=== PATIENT | male | born 1955 | race Caucasian/White ===

== ENCOUNTER 2017-02-02 07:39 | Emergency (ER) | payer OTHER ==
[~2017-02-02] VITALS: Ht 182.9 cm; Wt 106.6 kg
--- NOTE | 2017-02-02 07:53 | NUR ---
AAOX3, CAME TO ER C/O WORSENING CHRONIC BRONCHITIS THE LAST 5 DAYS. PATIENT ALSO C/O TOOTH CAVITY AND ASKING FOR A PRESCRIPTION OF ANTIBIOTIC. SKIN IS WARM AND DRY. RESP IS SLIGHTLY LABORED WITH NAD NOTE. DR MENDOSA AT FOR EVAL.
[2017-02-02] MEDS ORDERED: ALBUTEROL FS 2.5 MG/3 ML VIAL.NEB NEB ONE (08:00)
[2017-02-02] MEDS ORDERED: IPRATROPIUM NEB FS 0.5 MG/2.5 ML AMPUL.NEB NEB ONE (08:00)
[2017-02-02] MEDS ORDERED: methylPREDNISolone SOD SUCC 125 MG/2ML VIAL IV ONE (08:00)
[2017-02-02] MEDS ORDERED: methylPREDNISolone SOD SUCC 125 MG/2ML VIAL ONE (08:02)
[2017-02-02] MEDS ORDERED: IPRATROPIUM NEB FS 0.5 MG/2.5 ML AMPUL.NEB ONE (08:03)
[2017-02-02] MEDS ORDERED: ALBUTEROL FS 2.5 MG/3 ML VIAL.NEB ONE (08:03)
--- NOTE | 2017-02-02 08:11 | NUR ---
RFA #20 IV ACCESS. BLOOD SAMPLE COLLECTED SENT TO LAB
--- NOTE | 2017-02-02 08:11 | NUR ---
XRAY IN PROGRESS AT BS
[2017-02-02 08:42] LABS: BASOPHILS % (AUTO) 0.4 % (0.0-2.0); EOSINOPHILS # (AUTO) 0.2 /CMM (0.0-0.7); EOSINOPHILS % (AUTO) 2.5 % (0.0-6.0); HEMATOCRIT 41 % (39-51); LYMPHOCYTES # (AUTO) 2.1 /CMM (0.8-4.8); LYMPHOCYTES % (AUTO) 23.1 % (20.0-44.0); MEAN CORPUSCULAR HEMOGLOBIN 30 PG (26.0-33.0); MEAN CORPUSCULAR HGB CONC 34 g/dl (31.0-36.0); MEAN CORPUSCULAR VOLUME 88 fL (80-96); MONOCYTES # (AUTO) 0.9 /CMM (0.1-1.30); MONOCYTES % (AUTO) 10.4 % (2.0-12.0); NEUTROPHILS # (AUTO) 5.8 /CMM (1.8-8.9); NEUTROPHILS % (AUTO) 63.6 % (43.0-81.0); PLATELET COUNT (AUTO) 191 /CMM (150-450); RDW COEFFICIENT OF VARIATION 13.5 (11.5-15.0); RED BLOOD CELL COUNT(AUTO) 4.62 MIL/uL (4.5-6.0); WHITE BLOOD COUNT (AUTO) 9.1 K/uL (4.3-11.0)
[2017-02-02 09:00] LABS: TROPONIN I < 0.017 ng/mL (0.00-0.056)
[2017-02-02 09:02] LABS: CALCIUM, SERUM 8.7 mg/dL (8.5-10.1); CREATININE 1.1 mg/dL (0.6-1.3); POTASSIUM 4.1 mmol/L (3.5-5.1)
[2017-02-02 09:03] LABS: B-TYPE NATRIURETIC PEPTIDE 58 PG/ML (0-125)
[2017-02-02] MEDS ORDERED: LEVOFLOXACIN 750 MG /D5W 150ML 150 ML IV ONE (09:57)
[2017-02-02] MEDS ORDERED: IV SET PRIMARY PUMP SET 1 EA INFUS.SET MC ONE (09:57)
[2017-02-02] MEDS ORDERED: LEVOFLOXACIN 750 MG /D5W 150ML PIGGYBACK IV ONE (10:00)
--- NOTE | 2017-02-02 10:05 | NUR ---
PT TAKEN TO CT VIA WC
--- NOTE | 2017-02-02 11:16 | NUR ---
PAGED CHICKEN CLEANER FOR [facility] DR RODRIGUEZ
[2017-02-02] MEDS ORDERED: ARIP30TA PO (11:21)
--- NOTE | 2017-02-02 11:21 | NUR ---
CALLED NURSING INSTRUMENT ASSEMBLER FOR M/S BED
--- NOTE | 2017-02-02 11:47 | NUR ---
Patient does not wish to proceed with medical care recommended by Dr. MENDOSA. Patient given information related to possible complications, up to and including , which could occur as a result of leaving the hospital at this time. Patient verbalizes understanding of risks involved due to leaving against medical advice. Patient has signed AMA form.
--- NOTE | 2017-02-02 11:47 | NUR ---
IV removed. Catheter intact and site benign. Pressure and 4x4 applied to site. No bleeding noted.
--- NOTE | 2017-02-02 11:47 | NUR ---
Lee flanagan in [facility] - 02/02/17 at 1147 by PINO Patient discharged to home in stable condition. Written and verbal after care instructions given. Patient verbalizes understanding of instruction.
[2017-02-02 11:50] VITALS: BP 126/68
== END 2017-02-02 11:53 | disposition left against medical advice (07) ==
LOC: ER 07:41
DX: J44.1 Chronic obstructive pulmonary disease with (acute) exacerbation (principal); Z72.0 Tobacco use; J18.9 Pneumonia, unspecified organism; I10 Essential (primary) hypertension; Z94.1 Heart transplant status
CPT/HCPCS: 36415; 71010; 71250; 80048; 83880; 84484; 85025; 94640; 96365; 99285; A4606; J1956; J2930; Z7610

== ENCOUNTER 2017-07-27 07:34 | Inpatient (IN) | payer OTHER ==
[~2017-07-27] VITALS: Ht 177.8 cm; Wt 107.5 kg
[~2017-07-27 07:34] MED LIST: ARIP30TA PO
[2017-07-27] MEDS ORDERED: Magnesium 1GM/D5W 100ML PREMIX 200 ML IV ONE ×2 (07:58→08:04)
[2017-07-27] MEDS ORDERED: ONDANSETRON HCL/PF 4 MG/2 ML VIAL IVP ONE (08:00)
[2017-07-27] MEDS ORDERED: DILTIAZEM HCL 25 MG IV IV ONE ×2 (08:00→08:30)
[2017-07-27] MEDS ORDERED: IPRATROPIUM NEB FS 0.5 MG/2.5 ML AMPUL.NEB NEB ONE (08:00)
[2017-07-27] MEDS ORDERED: ALBUTEROL FS 2.5 MG/3 ML VIAL.NEB NEB ONE (08:00)
[2017-07-27] MEDS ORDERED: ASPIRIN EC 325 MG TABLET.DR PO ONE ×2 (08:00→08:04)
[2017-07-27] MEDS ORDERED: DILTIAZEM HCL 25 MG IV ONE ×2 (08:04→08:30)
[2017-07-27 08:14] LABS: BASOPHILS % (AUTO) 0.2 % (0.0-2.0); EOSINOPHILS % (AUTO) 0.1 % (0.0-6.0); HEMATOCRIT 37 % (39-51); HEMOGLOBIN 12.2 g/dL (13.5-17.5); LYMPHOCYTES # (AUTO) 0.7 /CMM (0.8-4.8); LYMPHOCYTES % (AUTO) 5.5 % (20.0-44.0); MEAN CORPUSCULAR HEMOGLOBIN 28 PG (26.0-33.0); MEAN CORPUSCULAR HGB CONC 33 g/dl (31.0-36.0); MEAN CORPUSCULAR VOLUME 85 fL (80-96); MONOCYTES # (AUTO) 0.7 /CMM (0.1-1.30); MONOCYTES % (AUTO) 5.7 % (2.0-12.0); NEUTROPHILS # (AUTO) 11.5 /CMM (1.8-8.9); NEUTROPHILS % (AUTO) 88.5 % (43.0-81.0); PLATELET COUNT (AUTO) 173 /CMM (150-450); RDW COEFFICIENT OF VARIATION 15.2 (11.5-15.0); RED BLOOD CELL COUNT(AUTO) 4.36 MIL/uL (4.5-6.0)
[2017-07-27] MEDS ORDERED: ONDANSETRON HCL/PF 4 MG/2 ML VIAL ONE (08:14)
--- NOTE | 2017-07-27 08:17 | NUR ---
EXPORT COORDINATOR AT BEDSIDE
[2017-07-27 08:24] LABS: CALCIUM, SERUM 8.4 mg/dL (8.5-10.1); CREATININE 1.1 mg/dL (0.6-1.3); POTASSIUM 4.1 mmol/L (3.5-5.1)
[2017-07-27] MEDS ORDERED: ALBUTEROL FS 2.5 MG/3 ML VIAL.NEB ONE (08:24)
[2017-07-27] MEDS ORDERED: IPRATROPIUM NEB FS 0.5 MG/2.5 ML AMPUL.NEB ONE (08:24)
[2017-07-27] MEDS ORDERED: DILTIAZEM HCL IV 125 MG in IV D5W 100 ML IV PRN (08:30)
[2017-07-27] MEDS ORDERED: DEXAMETHASONE SOD PHOSPHATE 10 MG/ML VIAL IV ONE (08:30)
[2017-07-27 08:31] LABS: TROPONIN I 0.029 ng/mL (0.00-0.056)
[2017-07-27 08:36] LABS: ALBUMIN 2.9 g/dL (3.4-5.0); BILIRUBIN,DIRECT 0.3 mg/dL (0.0-0.2); BILIRUBIN,TOTAL 0.7 mg/dL (0.2-1.0); TOTAL PROTEIN, SERUM 6.8 g/dL (6.4-8.2)
--- NOTE | 2017-07-27 08:38 | NUR ---
CALLED PHARMACY FOR AISLINN MARCELINO, SPOKE TO DAWSON
[2017-07-27] MEDS ORDERED: DEXAMETHASONE SOD PHOSPHATE 10 MG/ML VIAL ONE (08:43)
[2017-07-27] MEDS ORDERED: FUROSEMIDE 40 MG/4 ML VIAL IV ONE (09:00)
[2017-07-27] MEDS ORDERED: AZITHROMYCIN 500 MG in IV D5W 250 ML IV ONE (09:00)
[2017-07-27] MEDS ORDERED: CEFTRIAXONE 1GM BAG (ER ONLY) 1 GM/50 ML PIGGYBACK IV ONE (09:00)
[2017-07-27] MEDS ORDERED: CEFTRIAXONE 1GM BAG (ER ONLY) 50 ML IV ONE (09:11)
[2017-07-27] MEDS ORDERED: FUROSEMIDE 100 MG/10 ML VIAL ONE (09:11)
[2017-07-27] MEDS ORDERED: DIGOXIN INJ 0.5 MG/2 ML AMPUL ONE (09:57)
[2017-07-27] MEDS ORDERED: DIGOXIN INJ 0.5 MG/2 ML AMPUL IV ONE (10:00)
[2017-07-27] MEDS ORDERED: GABA-534 PO (10:09)
[2017-07-27] MEDS ORDERED: ALBU8.5H2 INH (10:09)
[2017-07-27] MEDS ORDERED: TIOT4MIS5 IH (10:09)
--- NOTE | 2017-07-27 10:27 | NUR ---
paged dr. gina putnam
--- NOTE | 2017-07-27 11:13 | NUR ---
GAVE REPORT TO KATIA CHAVES VICKI ROOM [address] DR MARILYN SALVADOR AFIB, PNA, CHF, COPD. TRANSFER VIA ACLS PROTOCOL
[2017-07-27] MEDS ORDERED: MAG HYDROX/AL HYDROX/SIMETH 30 ML UDC PO PRN (12:00)
[2017-07-27] MEDS ORDERED: Z GUARD REMEDY 2 OZ OINT TP PRN (12:00)
[2017-07-27] MEDS ORDERED: MAGNESIUM HYDROXIDE 30 ML UDC PO PRN (12:00)
[2017-07-27] MEDS ORDERED: ONDANSETRON HCL/PF 4 MG/2 ML VIAL IVP PRN (12:00)
[2017-07-27] MEDS ORDERED: ACETAMINOPHEN 325 MG TABLET PO PRN (12:00)
[2017-07-27] MEDS ORDERED: HYDROCODONE/APAP 5/325MG 1 EACH TABLET PO PRN (12:00)
--- NOTE | 2017-07-27 12:10 | NUR ---
RN VICKI RECEIVED PATIENT FROM ER A/0 X 3 SHORTNESS OF BREATH NOTED, CONNECTED TO 01 VIA NASAL CANNULA AT 2.0 LITERS ABLE TO AMBULATE ON CONTINUOUS CARDIZEM DRIP RATE OF 15 MG/ML NO CHEST PAIN VOIDING FREELY USING BATHROOM
[2017-07-27 12:30] VITALS: BP 130/85
[2017-07-27] MEDS: methylPREDNISolone SOD SUCC 125 MG/2ML VIAL IV SCH ×2 (13:09→16:39)
[2017-07-27] MEDS: DILTIAZEM HCL CD 240 MG PO SCH (13:09)
[2017-07-27 13:11] LABS: THYROID STIMULATING HORMONE 0.818 uIU/mL (0.358-3.74)
[2017-07-27 13:13] LABS: MAGNESIUM 1.9 mg/dL (1.8-2.4); PHOSPHORUS 3.8 mg/dL (2.5-4.9)
[2017-07-27 16:00] VITALS: BP 130/85
[2017-07-27] MEDS: GABAPENTIN 300 MG CAPSULE PO SCH (16:39)
[2017-07-27] MEDS ORDERED: RIVAROXABAN 10 MG TABLET PO SCH (17:00)
[2017-07-27] MEDS: NICOTINE PATCH (14MG) 14 MG PATCH.TD24 TD SCH (17:48)
--- NOTE | 2017-07-27 19:30 | NUR ---
VICKI/RN NOTES: RECEIVED PT. IN BED A/O X 4. W/ O2 @ 2LPM VIA N/C SAT. 93 %. ON TELE MONITOR AFIB/AFLUTTER 99. NO S/S OF ANY RESPIRATORY DISTRESS NOTED. HL ON RAC G# 20 PATENT AND INTACT W/ NO S/S OF INFECTION/INFILTRATION NOTED. HAS A URINAL AT BEDSIDE. ALL NEEDS MEET AND ATTENDED. CALL LIGHT W/ REACH. WILL CONTINUE TO MONITOR.
[2017-07-27 20:00] VITALS: BP 150/89
[2017-07-27] MEDS: IPRATROPIUM NEB FS 0.5 MG/2.5 ML AMPUL.NEB NEB SCH ×2 (23:55→23:56)
[2017-07-27] MEDS: ALBUTEROL FS 2.5 MG/0.5 ML VIAL.NEB NEB SCH ×2 (23:55→23:56)
[2017-07-28] VITALS: BP 118/76
[2017-07-28] MEDS: IPRATROPIUM NEB FS 0.5 MG/2.5 ML AMPUL.NEB NEB SCH ×2 (00:32→08:21)
[2017-07-28 04:00] VITALS: BP 123/85
--- NOTE | 2017-07-28 06:44 | NUR ---
RN/MS NOTES: PT. PULLED OUR HER IV LINE. OFFERED TO PUT ANOTHER ONE OR A MID LINE BUT PT.'S DAUGHTER REFUSED STATED " LET'S WAIT AFTER THE RESULTS AND WHO KNOW THAT SHE MIGHT BE DISCHARGED TODAY OR EVEN TOMORROW. CHARGE NURSE INFORMED. PT. IN BED RESTING W/RESPIRATIONS EVEN AND UNLABORED. NO FACIAL GRIMACES OR MOANING NOTED. CALL LIGHT W/ REACH. REPORT GIVEN TO NEXT SHIFT NURSE FOR CONTINUE OF CARE.
--- NOTE | 2017-07-28 06:54 | NUR ---
VICKI/RN NOTES: PT. SLEEPING W/ RESPIRATIONS EVEN AND UNLABORED W/ O2 @ 2LPM VIA N/C SAT. 93 %. PT. HAD 3 COKE CANS THROUGH THE NIGHT. DENIES ANY C/O PAIN OR DISCOMFORT AT THIS TIME. CALL LIGHT W/ REACH. DENIES ANY PAIN OR DISCOMFORT AT THIS TIME. REPORT GIVEN TO NEXT SHIFT NURSE FOR CONTINUE OF CARE.
[2017-07-28 07:00] LABS: BASOPHILS % (AUTO) 0.1 % (0.0-2.0); HEMATOCRIT 39 % (39-51); HEMOGLOBIN 12.5 g/dL (13.5-17.5); LYMPHOCYTES # (AUTO) 0.5 /CMM (0.8-4.8); MEAN CORPUSCULAR HEMOGLOBIN 28 PG (26.0-33.0); MEAN CORPUSCULAR HGB CONC 32 g/dl (31.0-36.0); MEAN CORPUSCULAR VOLUME 86 fL (80-96); MONOCYTES # (AUTO) 0.4 /CMM (0.1-1.30); MONOCYTES % (AUTO) 3.3 % (2.0-12.0); NEUTROPHILS % (AUTO) 92.6 % (43.0-81.0); PLATELET COUNT (AUTO) 171 /CMM (150-450); RDW COEFFICIENT OF VARIATION 14.6 (11.5-15.0); RED BLOOD CELL COUNT(AUTO) 4.52 MIL/uL (4.5-6.0); WHITE BLOOD COUNT (AUTO) 11.8 K/uL (4.3-11.0)
[2017-07-28 07:19] LABS: ALANINE AMINOTRANSFERASE 22 U/L (12-78); ALKALINE PHOSPHATASE 88 U/L (46-116); ASPARTATE AMINOTRANSFERASE 15 U/L (15-37); BILIRUBIN,TOTAL 0.5 mg/dL (0.2-1.0); CALCIUM, SERUM 8.8 mg/dL (8.5-10.1); CARBON DIOXIDE 34 mmol/L (21-32); CHLORIDE 94 mmol/L (98-107); CREATININE 0.9 mg/dL (0.6-1.3); GLUCOSE 230 mg/dL (74-106); MAGNESIUM 2.4 mg/dL (1.8-2.4); PHOSPHORUS 4.2 mg/dL (2.5-4.9); POTASSIUM 4.7 mmol/L (3.5-5.1); SODIUM SERUM 133 mmol/L (136-145); UREA NITROGEN, BLOOD 16 mg/dL (7-18)
--- NOTE | 2017-07-28 07:21 | NUR ---
RN NOTES RECEIVED PT FROM DATABASE TECHNICIAN IN STABLE CONDITION, A&0X3, ON 2L NC NO SOB OR DISTRESS NOTED. A FIB ON THE TELE MONITOR HR IN THE 100S. RAC 20G IV SITE DRY AND INTACT NO IVF. BED LOCKED AND IN LOWEST POSITION, CALL LIGHT WITHIN REACH, SIDE RAILS UPX3, WILL CONT TO MONITOR.
[2017-07-28 07:35] LABS: TROPONIN I < 0.017 ng/mL (0.00-0.056)
[2017-07-28 07:37] LABS: CHOLESTEROL 123 mg/dL (<200); HDL CHOLESTEROL 43 mg/dL (40-60); LDL 68 mg/dL (0-99); TRIGLYCERIDES 51 mg/dL (30-150)
[2017-07-28 07:38] LABS: THYROID STIMULATING HORMONE 0.328 uIU/mL (0.358-3.74)
[2017-07-28 08:00] VITALS: BP 104/83
[2017-07-28] MEDS: ALBUTEROL FS 2.5 MG/0.5 ML VIAL.NEB NEB SCH (08:21)
[2017-07-28] MEDS: NICOTINE PATCH (14MG) 14 MG PATCH.TD24 TD SCH (08:23)
[2017-07-28] MEDS: DILTIAZEM HCL CD 240 MG PO SCH (08:25)
[2017-07-28] MEDS: GABAPENTIN 300 MG CAPSULE PO SCH (08:25)
[2017-07-28] MEDS: methylPREDNISolone SOD SUCC 125 MG/2ML VIAL IV SCH (08:26)
[2017-07-28] MEDS ORDERED: CEFTRIAXONE 1 G in IV D5W 50 ML IV SCH (09:00)
[2017-07-28] MEDS ORDERED: ARIPIPRAZOLE 5 MG TABLET PO SCH (09:00)
[2017-07-28] MEDS ORDERED: AZITHROMYCIN 500 MG in IV D5W 250 ML IV SCH (09:00)
[2017-07-28] MEDS ORDERED: TIOTROPIUM BROMIDE 4 GM IH SCH (09:00)
[2017-07-28] MEDS ORDERED: NICOTINE PATCH (14MG) 14 MG PATCH.TD24 TD SCH ×2 (09:00)
[2017-07-28] MEDS ORDERED: DIGOXIN INJ 0.5 MG/2 ML AMPUL IV SCH (10:00)
[2017-07-28 12:00] VITALS: BP 106/74
--- NOTE | 2017-07-28 13:30 | NUR ---
RN NOTES PT WANTING TO GO OUTSIDE AND SPOKE. DANGERS OF SMOKING EXPLAINED TO PT BY ME AND CHARGE NURSE PAIGE. PT REFUSED TO STAY HERE IF UNABLE TO SMOKE. ALFREDO BAUGH TRAFFIC CONTROL SIGNALER PAGED, PER ALFREDO IF PT WANTS TO SMOKE HE CAN LEAVE AMA, HE IS TOO SICK TO GO OUTSIDE AND SMOKE, PT ON ON TELE BOX, IN AFIB HR 130S. PT MADE AWARE OF THIS, PT STATED HE WILL SIGN AMA. AMA FORM SIGNED, MEDICATIONS PICKED UP FROM PHARMACY, PT WALKED OUTSIDE.
[2017-07-28] MEDS ORDERED: SOD FERRIC GLUC 125 MG in IV NS 0.9% 100 ML IV SCH (14:00)
[2017-07-28] MEDS ORDERED: LACTOBACILLUS RHAMNOSUS GG 1 EACH CAP.SPRINK PO SCH (17:00)
[2017-07-28] MEDS ORDERED: METFORMIN 500 MG TABLET PO SCH (17:00)
== END 2017-07-28 13:15 | disposition left against medical advice (07) | DRG 871 ==
LOC: ER 07:36 → TELE-TD 10:45 → TELE1 07-28 10:09
DX: A41.9 Sepsis, unspecified organism (principal); J96.01 Acute respiratory failure with hypoxia; I11.0 Hypertensive heart disease with heart failure; J15.9 Unspecified bacterial pneumonia; I50.32 Chronic diastolic (congestive) heart failure; J44.0 Chronic obstructive pulmonary disease with (acute) lower respiratory infection; E87.1 Hypo-osmolality and hyponatremia; J44.1 Chronic obstructive pulmonary disease with (acute) exacerbation; I48.91 Unspecified atrial fibrillation; D63.8 Anemia in other chronic diseases classified elsewhere; E11.65 Type 2 diabetes mellitus with hyperglycemia; E66.9 Obesity, unspecified; F17.210 Nicotine dependence, cigarettes, uncomplicated; Z68.34 Body mass index [BMI] 34.0-34.9, adult; E05.80 Other thyrotoxicosis without thyrotoxic crisis or storm
CPT/HCPCS: 36415; 71010-TC; 80048-TC; 80053-TC; 80061-TC; 80076-TC; 82306; 82728-TC; 82962-TC; 83540-TC; 83605-TC; 83735-TC; 83880; 84100-TC; 84439-TC; 84443-TC; 84484-TC; 85025-TC; 87081-TC; 87400; A4606; J0456; J0696; J1100; J1160; J1940; J2405; J2916; J2930; J3475; J3490; J7030; J7050; J7060; Z7610

== ENCOUNTER 2017-07-29 06:44 | Inpatient (IN) | payer OTHER ==
[~2017-07-29] VITALS: Ht 177.8 cm; Wt 117.9 kg
[~2017-07-29 06:44] MED LIST changes: +ALBU8.5H2 INH; +GABA-534 PO; +TIOT4MIS5 IH
--- NOTE | 2017-07-29 06:46 | NUR ---
PT A/OX4, PT C/O BAD COUGH WITH PALPITATIONS, PT AMA'ED HIMSELF FROM THIS HOSPITAL YESTERDAY AND IS BACK WITH THE SAME COMPLAINT HE WAS ADMITTED FOR, PT ON MONITOR, IV PLACED, LABS DRAWN, MD AT BEDSIDE WILL CONTINUE TO MONITOR.
[2017-07-29] MEDS ORDERED: CEFTRIAXONE 1GM BAG (ER ONLY) 50 ML IV ONE (07:00)
[2017-07-29] MEDS ORDERED: AZITHROMYCIN 500 MG in IV D5W 250 ML IV ONE (07:00)
[2017-07-29 07:15] LABS: BASOPHILS % (AUTO) 0.1 % (0.0-2.0); EOSINOPHILS % (AUTO) 0.1 % (0.0-6.0); HEMATOCRIT 39 % (39-51); HEMOGLOBIN 12.7 g/dL (13.5-17.5); LYMPHOCYTES # (AUTO) 1.3 /CMM (0.8-4.8); LYMPHOCYTES % (AUTO) 6.1 % (20.0-44.0); MEAN CORPUSCULAR HEMOGLOBIN 28 PG (26.0-33.0); MEAN CORPUSCULAR HGB CONC 33 g/dl (31.0-36.0); MEAN CORPUSCULAR VOLUME 86 fL (80-96); MONOCYTES # (AUTO) 1.8 /CMM (0.1-1.30); MONOCYTES % (AUTO) 8.9 % (2.0-12.0); NEUTROPHILS # (AUTO) 17.4 /CMM (1.8-8.9); NEUTROPHILS % (AUTO) 84.8 % (43.0-81.0); PLATELET COUNT (AUTO) 207 /CMM (150-450); RDW COEFFICIENT OF VARIATION 15.1 (11.5-15.0); RED BLOOD CELL COUNT(AUTO) 4.51 MIL/uL (4.5-6.0); WHITE BLOOD COUNT (AUTO) 20.5 K/uL (4.3-11.0)
--- NOTE | 2017-07-29 07:28 | NUR ---
XRAY AT BS
[2017-07-29 07:31] LABS: ALBUMIN 3.2 g/dL (3.4-5.0); BILIRUBIN,DIRECT 0.2 mg/dL (0.0-0.2); BILIRUBIN,TOTAL 0.4 mg/dL (0.2-1.0); POTASSIUM 4.1 mmol/L (3.5-5.1); TOTAL PROTEIN, SERUM 7.2 g/dL (6.4-8.2)
[2017-07-29 07:33] LABS: TROPONIN I 0.027 ng/mL (0.00-0.056)
[2017-07-29 07:35] LABS: INR 1.04 (0.87-1.13); PROTHROMBIN TIME 10.8 SECS (9.5-12.7)
[2017-07-29] MEDS ORDERED: ACETAMINOPHEN ES 500 MG TABLET ONE (08:21)
[2017-07-29] MEDS ORDERED: DILTIAZEM HCL 25 MG IV ONE (08:22)
[2017-07-29] MEDS ORDERED: DILTIAZEM HCL 25 MG IV IV ONE (08:30)
[2017-07-29] MEDS ORDERED: ACETAMINOPHEN ES 500 MG TABLET PO ONE (08:30)
--- NOTE | 2017-07-29 08:45 | NUR ---
franny benjamin for admission
--- NOTE | 2017-07-29 09:00 | NUR ---
PT PUT ON NC 2LPM SATURATING 94%
--- NOTE | 2017-07-29 09:10 | NUR ---
paged Matthew Key for admission
--- NOTE | 2017-07-29 10:34 | NUR ---
[place] MACHINE OPERATOR NOTE PT RECEIVED FROM THE ED, PT IN BED NO SOB NOTED PT COMPLAINS OF NAUSEA HOWEVER PT SATES NO PAIN AT THIS TIME. PT APPEARS FLUSH WITH FACIAL REDNESS, PT STATES THIS IS NORMAL AND OCCURS OCCASIONALLY. PT IS ON 2.5L NC, SATURATING WELL VSS B/P 128/83, HR 66, RR20. PT PLACED ON TELE PT CURRENTLY READING AFIB 113. PATIENT CURRENTLY RESTING RN AWAITING ORDERS FROM ROXANNA RAMIREZ REQUESTING TO REST AT THIS TIME AND HAS REFUSED HIS INITIAL PHYSICAL ASSESSMENT, RN HAS COMPLETED MUCH OF THE INITIAL ASSESSMENT THE PATIENT HAS ALLOWED , RN WILL CONTINUE TO FOLLOW PATIENT REQUESTING FOOD HOWEVER RN AWAITING MD ORDERS . PATIENT IN BED SAFETY MEASURES IN PLACE , CALL LIGHT WITHIN REACH, BED ALARMS IN PLACE , PT ORIENTED TO THE ROOM , RN WILL CONTINUE TO MONITOR THROUGH OUT THE SHIFT
--- NOTE | 2017-07-29 10:35 | NUR ---
per abhi hendrix he will put in admit orders,will continue to ff.up
[2017-07-29] MEDS ORDERED: ONDANSETRON HCL/PF 4 MG/2 ML VIAL IVP PRN (11:30)
[2017-07-29] MEDS ORDERED: MAGNESIUM HYDROXIDE 30 ML UDC PO PRN (11:30)
[2017-07-29] MEDS ORDERED: ACETAMINOPHEN 325 MG TABLET PO PRN (11:30)
[2017-07-29] MEDS ORDERED: MAG HYDROX/AL HYDROX/SIMETH 30 ML UDC PO PRN (11:30)
[2017-07-29] MEDS ORDERED: Z GUARD REMEDY 2 OZ OINT TP PRN (11:30)
[2017-07-29] MEDS ORDERED: HYDROCODONE/APAP 5/325MG 1 EACH TABLET PO PRN (11:30)
[2017-07-29] MEDS ORDERED: ZOLPIDEM TARTRATE 5 MG TABLET PO PRN (11:30)
[2017-07-29] MEDS ORDERED: SITAGLIPTIN PHOSPHATE 50 MG TABLET PO SCH (11:30)
[2017-07-29 12:00] VITALS: BP 128/83
--- NOTE | 2017-07-29 12:36 | NUR ---
RN NOTE ORTHOPEDIC PODIATRIST ESCROW PROCESSOR THAT ITS OK FOR PT TO EAT LUNCH DUE TO PTS CURRENT DIET ORDERS. RN WILL CONTACT KITCHEN IN REGARDS TO MEAL.
[2017-07-29] MEDS ORDERED: *INSULIN REGULAR(HUMULIN R)HUM 100 UNIT/ML VIAL SQ PRN (13:00)
[2017-07-29] MEDS ORDERED: DEXTROSE 50%-WATER 50 ML DISP.SYRIN IV PRN (13:00)
--- NOTE | 2017-07-29 13:01 | NUR ---
RN NOTE RN NOTIFIED CHARGE NURSE PAIGE IN REGARDS TO PATIENTS ADMITTING DIAGNOSIS OF CHEST PAIN HOWEVER PATIENT HAS A DIET ORDER RN INFORMED IT IS OKAY TO ADMINISTER FOOD , RN CONTACTED KITCHEN IN REGARDS TO LUNCH TRAY KITCHEN WILL BRING TRAY SOON POSSIBLE
[2017-07-29] MEDS: DILTIAZEM HCL CD 240 MG PO SCH (13:12)
[2017-07-29] MEDS: FUROSEMIDE 20 MG/2 ML VIAL IV SCH ×3 (13:13→21:12)
[2017-07-29] MEDS: DIGOXIN 0.25 MG TABLET PO SCH ×2 (13:13→17:58)
[2017-07-29 16:00] VITALS: BP 129/80
[2017-07-29] MEDS ORDERED: ALBUTEROL FS 2.5 MG/3 ML VIAL.NEB ONE (17:31)
[2017-07-29] MEDS: BLOOD SUGAR DIAGNOSTIC 1 EACH STRIP VI SCH ×2 (17:59→21:19)
[2017-07-29] MEDS: INSULIN REGULAR, HUMAN 100 UNIT/ML 3 ML VIAL SQ PRN (18:01)
--- NOTE | 2017-07-29 18:08 | NUR ---
RN CLOSING NOTE PT STABLE AND IN BED, CURRENTLY RECEIVING 2.5L NC, BREATHING TREATMENT ADMINISTERED VIA RT DUE TO SOB. WHEEZING HAS DECREASED, ADMISSION ASSESSMENT COMPLECTED.
[2017-07-29] MEDS ORDERED: ALBUTEROL FS 2.5 MG/3 ML VIAL.NEB NEB SCH (19:30)
--- NOTE | 2017-07-29 19:50 | NUR ---
MANAGER PAYER INITIAL NOTE PT RECEIVED IN NO ACUTE DISTRESS AT THIS TIME. PT IS A/O X 4 ABLE TO MAKE NEEDS KNOWN AND WALK TO THE BATHROOM. ON TELE WITH A-FIB 76. IV 18G IN RIGHT HAND THAT IS CLEAN DRY AND INTACT. COMFORT AND SAFETY MEASURES TO BE ENSURED DURING THE SHIFT. WILL CONTINUE TO MONITOR FOR ANY CHANGES.
[2017-07-29 20:00] VITALS: BP_SYST 108; BP_SYST 135; BP_DIAS 70; BP_DIAS 72
[2017-07-29] MEDS: ALBUTEROL FS 2.5 MG/3 ML VIAL.NEB NEB PRN (21:08)
[2017-07-30] VITALS: BP 135/70
[2017-07-30 04:00] VITALS: BP 117/73
[2017-07-30] MEDS: ALBUTEROL FS 2.5 MG/3 ML VIAL.NEB NEB PRN ×2 (05:53→08:11)
[2017-07-30 06:50] LABS: EOSINOPHILS % (AUTO) 0.1 % (0.0-6.0); HEMATOCRIT 41 % (39-51); HEMOGLOBIN 13.4 g/dL (13.5-17.5); LYMPHOCYTES # (AUTO) 0.8 /CMM (0.8-4.8); LYMPHOCYTES % (AUTO) 5.7 % (20.0-44.0); MEAN CORPUSCULAR HEMOGLOBIN 28 PG (26.0-33.0); MEAN CORPUSCULAR HGB CONC 32 g/dl (31.0-36.0); MEAN CORPUSCULAR VOLUME 86 fL (80-96); MONOCYTES # (AUTO) 1.5 /CMM (0.1-1.30); MONOCYTES % (AUTO) 10.4 % (2.0-12.0); NEUTROPHILS # (AUTO) 12.1 /CMM (1.8-8.9); NEUTROPHILS % (AUTO) 83.8 % (43.0-81.0); PLATELET COUNT (AUTO) 183 /CMM (150-450); RDW COEFFICIENT OF VARIATION 14.9 (11.5-15.0); RED BLOOD CELL COUNT(AUTO) 4.81 MIL/uL (4.5-6.0); WHITE BLOOD COUNT (AUTO) 14.4 K/uL (4.3-11.0)
[2017-07-30 06:56] LABS: CALCIUM, SERUM 8.6 mg/dL (8.5-10.1); CREATININE 0.9 mg/dL (0.6-1.3); MAGNESIUM 2.2 mg/dL (1.8-2.4); PHOSPHORUS 4.2 mg/dL (2.5-4.9); POTASSIUM 4.1 mmol/L (3.5-5.1)
--- NOTE | 2017-07-30 07:05 | NUR ---
RN INITIAL NOTE PATIENT RECEIVED IN BED, SLEEPING. EASILY AROUSED.ORIENTED, ABLE TO MAKE NEEDS KNOWN. AFIB ON TELE MONITOR. RESPIRATIONS ARE EVEN AND UNLABORED, NO S/S OF RESPIRATORY DISTRESS OR SOB. SATING WELL ON 3L NASAL CANULA. SKIN IS WARM AND DRY TO TOUCH. IV SITE FLUSHED, PATENT. SAFETY PRECAUTIONS IMPLEMENTED, BED IN LOCKED, LOW POSITION WITH TWO SIDE RAILS UP. CALL LIGHT AND BELONGINGS WITHIN EASY REACH. WILL CONTINUE TO MONITOR.
[2017-07-30 08:00] VITALS: BP 132/84
[2017-07-30] MEDS: BLOOD SUGAR DIAGNOSTIC 1 EACH STRIP VI SCH ×2 (08:03→13:13)
[2017-07-30] MEDS: DILTIAZEM HCL CD 240 MG PO SCH (08:07)
[2017-07-30] MEDS: INSULIN REGULAR, HUMAN 100 UNIT/ML 3 ML VIAL SQ PRN ×2 (08:11→13:16)
[2017-07-30] MEDS ORDERED: FUROSEMIDE 40 MG TABLET PO SCH (09:00)
[2017-07-30] MEDS ORDERED: LINAGLIPTIN 5 MG TABLET PO SCH (09:00)
[2017-07-30] MEDS ORDERED: POTASSIUM CHLORIDE 20 MEQ TAB.PRT.SR PO SCH (09:00)
[2017-07-30] MEDS: methylPREDNISolone SOD SUCC 125 MG/2ML VIAL IV SCH ×2 (09:41→13:14)
[2017-07-30 12:00] VITALS: BP 116/75
[2017-07-30] MEDS ORDERED: IPRATROPIUM NEB FS 0.5 MG/2.5 ML AMPUL.NEB NEB SCH (13:30)
[2017-07-30] MEDS ORDERED: ALBUTEROL FS 2.5 MG/0.5 ML VIAL.NEB NEB SCH (13:30)
--- NOTE | 2017-07-30 15:00 | NUR ---
RN CLOSING NOTE GAVE REPORT TO ОЛЬГА.
[2017-07-30] MEDS ORDERED: METH4TAB16 PO (15:11)
[2017-07-30] MEDS ORDERED: FURO-145 PO (15:12)
--- NOTE | 2017-07-30 15:14 | NUR ---
PUBLIC SCHOOL TEACHER NOTES RECEIVED CARE OF PATIENT FROM SNOW CHAVES. LUIS AT BEDSIDE WITH PATIENT. PATIENT STATES WANTS TO GO HOME. I SPOKE WITH CASE MANAGEMENT AND PER CASE MANAGEMENT PATIENT WILL NOT QUALIFY FOR HOME O2 UNLESS O2 SAT 82% FOR COPD HX. PATIENT STATES HE WANTS TO GO AMA AFTER HEARING THIS. LUIS AT BEDSIDE STATES SHE WILL NOT MEDICALLY D/C PATIENT AND PATIENT STATES UNDERSTANDING HE WILL GO AMA. SIGNED AMA FORM. REFUSED EDUCATION BUT DID ACCEPT [employer] CLERK LUIS RX FOR SOLU PACK AND LASIX. PATIENT LEFT FACILITY AMA. UNDERSTANDS TO CALL 911 IN CASE OF EMERGENCY AND TO TAKE MEDICATIONS PRESCRIBED. IV REMOVED. CATH TIP INTACT. PRESSURE AND DRESSING APPLIED NO BLEEDING NOTED. PATIENT STATES UNDERSTANDING LEAVING AMA CAN RESULT UP TO .
--- NOTE | 2017-07-30 15:20 | NUR ---
RN NOTE PATIENT LEAVING AMA REMOVED IV SITE AND ID BANDS
--- NOTE | 2017-07-30 15:50 | NUR ---
Unique Id: [id number]
== END 2017-07-30 15:30 | disposition left against medical advice (07) | DRG 308 ==
LOC: ER 06:45 → TELE1 09:55 → TELE-TD 10:01 → TELE1 13:24
PROVIDERS: ADMIT Nurse Practitioner Acute Care; ATTEND Nurse Practitioner Acute Care
DX: I48.91 Unspecified atrial fibrillation (principal); I50.33 Acute on chronic diastolic (congestive) heart failure; J44.1 Chronic obstructive pulmonary disease with (acute) exacerbation; E87.1 Hypo-osmolality and hyponatremia; D68.59 Other primary thrombophilia; I11.0 Hypertensive heart disease with heart failure; F17.210 Nicotine dependence, cigarettes, uncomplicated; D72.829 Elevated white blood cell count, unspecified; R73.9 Hyperglycemia, unspecified; Z91.19 Patient's noncompliance with other medical treatment and regimen; Z71.6 Tobacco abuse counseling
CPT/HCPCS: 36415; 71010-TC; 80048-TC; 80076-TC; 82962-TC; 83605-TC; 83735-TC; 84100-TC; 84484-TC; 85025-TC; 85730-TC; 87040-TC; A4606; J0456; J0696; J1815; J1940; J2930; J3490; J7060; Z7610